=== PATIENT | male | born 1970 | race Caucasian/White ===

== ENCOUNTER 2017-08-22 11:28 | Emergency (ER) | payer OTHER ==
[2017-08-22 11:42] VITALS: BP 157/99
--- NOTE | 2017-08-22 11:49 | UC ---
Throat Pain/Nasal Ronny HPI - HPI Summary HPI Summary: c/o sore throat for a couple of days now using alkaseltzer otc with some relief. has nonproductive cough, nasal congestion, earache no chills/fever present - History of Current Complaint Chief Complaint: UCRespiratory Stated Complaint: SORE THROAT Hx Obtained From: Patient Onset/Duration: Lasting Days Severity: Mild Cough: Nonproductive Associated Signs & Symptoms: Positive: Sinus Discomfort - Epiglottits Risk Factors Epiglottis Risk Factors: Negative - Allergies/Home Medications Allergies/Adverse Reactions: Allergies Allergy/AdvReac Type Severity Reaction Status Date / Time No Known Allergies Allergy Verified 08/22/17 11:38 PMH/Surg Hx/FS Hx/Imm Hx Previously Healthy: Yes Review of Systems Constitutional: Negative Skin: Negative Eyes: Negative ENT: Sore Throat, Ear Ache, Nasal Discharge, Sinus Congestion Respiratory: Cough - nonproductive Cardiovascular: Negative Gastrointestinal: Negative Genitourinary: Negative Is Patient Immunocompromised?: No All Other Systems Reviewed And Are Negative: Yes Physical Exam Triage Information Reviewed: Yes Appearance: Ill-Appearing Vital Signs Reviewed: Yes Eye Exam: Normal ENT: Positive: Pharyngeal erythema, Nasal congestion, TM bulging, Hoarse voice Neck: Positive: Supple Respiratory Exam: Normal Cardiovascular Exam: Normal Psychological Exam: Normal Skin Exam: Normal Throat Pain/Nasal Course/Dx - Course Course Of Treatment: strep swab done by nurse. increase fluid intake daily while on abx to prevent dehydration. take full course of abx and take with food to reduce GI upset - discussed use and common side effects of med. take ibuprofen or tylenol prn every 4-6 hours as directed on bottle for pain/fever. f/u pcp 1 week if symptoms not resolving or getting worse - Differential Dx/Diagnosis Provider Diagnoses: sinusitis/pharyngitis Discharge - Discharge Plan Condition: Good Disposition: HOME Prescriptions: Amoxicillin PO (*) [Amoxicillin 875 MG (*)] 875 mg PO BID 10 Days #20 tab Patient Education Materials: Sinusitis (ED), Pharyngitis (ED) Referrals: Ronnie Ayala MD [Primary Care Provider] - 1 Week
== END 2017-08-22 12:12 | disposition home or self-care (01) ==
LOC: UCCORT 11:28
DX: J32.9 Chronic sinusitis, unspecified (principal); J02.9 Acute pharyngitis, unspecified
CPT/HCPCS: 87651; 99212; G0463